=== PATIENT | female | born 1960 | race Caucasian/White ===

== ENCOUNTER 2017-08-01 11:06 | Emergency (ER) | payer OTHER, BC ==
[2017-08-01 11:14] VITALS: PULSE 81; RESP 18; TEMP 97
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
--- NOTE | 2017-08-01 12:16 | XR ---
Right knee HISTORY: Trauma and pain 3 views of the right knee There is a comminuted fracture at the medial aspect of the proximal tibia with inferior displacement of the fracture fragment, intra-articular involvement is noted. There is a joint effusion. IMPRESSION: Proximal comminuted intra-articular tibial fracture
--- NOTE | 2017-08-01 12:17 | XR ---
Right ankle HISTORY: Right ankle pain, trauma 3 views of the right ankle Bone mineralization, joint spaces and alignment are maintained. No significant soft tissue swelling. Plantar calcaneal spur is noted incidentally. IMPRESSION: No acute fracture or dislocation evident, follow-up as indicated.
[2017-08-01] MEDS ORDERED: HYDROcodone/APAP 5-325MG 1 EACH TAB PO STA (13:28)
[2017-08-01 14:05] VITALS: BP 167/87
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
== END 2017-08-01 14:30 | disposition home or self-care (01) ==
LOC: EC 11:06
DX: S82.091A Other fracture of right patella, initial encounter for closed fracture (principal); R40.2412 Glasgow coma scale score 13-15, at arrival to emergency department; V89.2XXA Person injured in unspecified motor-vehicle accident, traffic, initial encounter; Y92.410 Unspecified street and highway as the place of occurrence of the external cause
CPT/HCPCS: 99285

== ENCOUNTER → 2017-08-03 | Outpatient (CLI) | payer OTHER | LOC: LABWHC1 14:46 | PROVIDERS: ATTEND Physician Assistant | DX: Z01.818 Encounter for other preprocedural examination (principal) | CPT/HCPCS: 36415; 93005 ==

== ENCOUNTER 2017-08-11 06:52 | Inpatient (IN) | payer OTHER, BC ==
[2017-08-08 13:28] VITALS: BMI 35.7
[~2017-08-11 06:52] MED LIST: ACETAMINOPHEN TAB 500 MG TAB PO ONE; DEXAMETHASONE SOD PHOSPHATE 10 MG/ML 1 ML VIAL IV ONE; MIDAZOLAM 2 MG/2 ML VIAL IV PRN; ONDANSETRON 4 MG/2 ML VIAL IVP ONE; SCOPOLAMINE 1.5MG/72HR PATCH TRANSDERM ONE; TRANEXAMIC ACID 1,000 MG in SODIUM CHLORIDE 0.9% 50 ML IVPB ONE; ceFAZolin IN SWFI 2 GM/20 ML SYRINGE IVP ONE; fentaNYL (PF) 50 MCG/ML 2 ML AMP IV PRN
[2017-08-11 07:30] VITALS: RESP 16
[2017-08-11] MEDS: LACTATED RINGERS 1,000 ML IV SCH ×2 (07:46→14:15)
[2017-08-11] MEDS ORDERED: LIDOCAINE 1% 20 ML VIAL (10MG/ML) FOR IV START INTRADERMA ONE (07:46)
[2017-08-11 07:56] LABS: Anisocytosis Slight; Basophils # (A) 0.1 k/uL (0-0.2); Basophils % (A) 1 %; Eosinophils # (A) 0.3 k/uL (0-0.7); Eosinophils % (A) 3 %; HCT 30.5 % (34.0-46.0); HGB 8.7 gm/dL (11.4-16.0); Hypochromasia Marked; Lymphocytes # (A) 1.7 k/uL (1.0-4.8); Lymphocytes % (A) 20 %; MCH 18.4 pg (25.0-35.0); MCHC 28.7 g/dL (31.0-37.0); MCV 64.3 fL (80.0-100.0); Mean Platelet Volume 6.1; Microcytosis Marked; Monocytes # (A) 0.4 k/uL (0-1.0); Monocytes % (A) 4 %; Neutrophils # (A) 5.9 k/uL (1.3-7.7); Neutrophils % (A) 70 %; Platelet Count 528 k/uL (150-450); Poikilocytosis Slight; RBC 4.75 m/uL (3.80-5.40); WBC 8.4 k/uL (3.8-10.6)
[2017-08-11] MEDS ORDERED: TRANEXAMIC ACID 1,000 MG/10 ML VIAL ONE (09:31)
[2017-08-11] MEDS ORDERED: MIDAZOLAM 2 MG/2 ML VIAL ONE (09:31)
[2017-08-11] MEDS ORDERED: SODIUM CHLORIDE 0.9% 100 ML BAG ONE (09:31)
[2017-08-11] MEDS ORDERED: fentaNYL (PF) 50 MCG/ML 2 ML AMP ONE (09:31)
[2017-08-11] MEDS ORDERED: PROPOFOL 10 MG/ML 20 ML VIAL IV ONE (09:31)
[2017-08-11] MEDS: ROPIVACAINE 246.25 MG, EPINEPHrine 0.5 MG, KETOROLAC 30 MG, cloNIDine HCL/PF 80 MCG, WA... MISCELLANE ONE ×10 (10:35→11:37)
[2017-08-11] MEDS ORDERED: ceFAZolin 1,000 MG in SODIUM CHLORIDE 0.9% 1,000 ML IRRIGATION ONE (10:36)
[2017-08-11] MEDS ORDERED: ONDANSETRON 4 MG/2 ML VIAL IVP PRN (12:18)
[2017-08-11] MEDS ORDERED: hydrOXYzine PAMOATE 25 MG CAP PO PRN (12:18)
[2017-08-11] MEDS ORDERED: NALOXONE 0.4 MG/ML 1 ML VIAL IV PRN (12:18)
[2017-08-11] MEDS ORDERED: NA PHOS,M-B/NA PHOS,DI-BA 133 ML ENEMA RECTAL PRN (12:18)
[2017-08-11] MEDS ORDERED: BISACODYL 10 MG SUPP RECTAL PRN (12:18)
[2017-08-11] MEDS ORDERED: MAGNESIUM HYDROXIDE 2,400 MG/10 ML CUP PO PRN (12:18)
[2017-08-11] MEDS ORDERED: HYDROmorphone 1 MG/ML 1 ML SYRINGE IVP PRN (12:18)
[2017-08-11] MEDS ORDERED: HYDROmorphone 0.5 MG/0.5 ML SYRINGE IVP PRN ×4 (12:18→15:36)
[2017-08-11] MEDS ORDERED: ACETAMINOPHEN TAB 325 MG TAB PO PRN (12:18)
[2017-08-11] MEDS ORDERED: HYDROcodone/APAP 5-325MG 1 EACH TAB PO PRN (12:18)
--- NOTE | 2017-08-11 12:36 | FL ---
Fluoroscopy HISTORY: Open reduction internal fixation 18 seconds fluoroscopy time supplied to the referring clinician. 2 intraoperative C-arm images docum ent the procedure. See dictated report from orthopedic surgery.
--- NOTE | 2017-08-11 12:37 | XR ---
Limited leg HISTORY: Fracture 2 intraoperative images document the procedure
--- NOTE | 2017-08-11 12:59 | XR ---
EXAMINATION TYPE: XR knee limited RT DATE OF EXAM: 08/11/2017 COMPARISON: NONE HISTORY: Postop evaluation TECHNIQUE: 2 view right knee FINDINGS: Plate and screws in place through a tibial plateau fracture along the medial aspect of the proximal tibia. No new fractures are evident. Postsurgical changes are within soft tissues. IMPRESSION: 1. No additional fractures post open reduction and fixation tibial plateau fracture repair.
[2017-08-11] MEDS: HYDROcodone/APAP 5-325MG 1 EACH TAB PO PRN ×2 (14:11→20:28)
[2017-08-11] MEDS: ceFAZolin IN SWFI 2 GM/20 ML SYRINGE IVP SCH (17:30)
[2017-08-11] MEDS ORDERED: WARFARIN 5 MG TAB PO ONE (18:00)
[2017-08-11] MEDS ORDERED: SENNOSIDES-DOCUSATE SODIUM 1 EACH TAB PO SCH (21:00)
[2017-08-11] MEDS ORDERED: TEMAZEPAM 15 MG CAP PO PRN (22:00)
[2017-08-12] MEDS: ceFAZolin IN SWFI 2 GM/20 ML SYRINGE IVP SCH (00:34)
[2017-08-12] MEDS: HYDROcodone/APAP 5-325MG 1 EACH TAB PO PRN ×2 (02:01→08:29)
[2017-08-12] MEDS: LACTATED RINGERS 1,000 ML IV SCH ×3 (03:27→08:29)
[2017-08-12 07:18] LABS: Anisocytosis Slight; Basophils % (A) 0 %; Eosinophils # (A) 0.1 k/uL (0-0.7); Eosinophils % (A) 0 %; HCT 27.9 % (34.0-46.0); HGB 7.8 gm/dL (11.4-16.0); Hypochromasia Marked; Lymphocytes # (A) 2.3 k/uL (1.0-4.8); Lymphocytes % (A) 19 %; MCH 18.2 pg (25.0-35.0); MCV 65.1 fL (80.0-100.0); Microcytosis Marked; Monocytes # (A) 0.6 k/uL (0-1.0); Monocytes % (A) 5 %; Neutrophils # (A) 9.1 k/uL (1.3-7.7); Neutrophils % (A) 75 %; Platelet Count 512 k/uL (150-450); RBC 4.28 m/uL (3.80-5.40); RDW 17.9 % (11.5-15.5); WBC 12.2 k/uL (3.8-10.6)
[2017-08-12 07:30] LABS: INR 1.1 (<1.2); Prothrombin Time 10.4 sec (9.0-12.0)
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
[2017-08-12 10:55] VITALS: BP 165/81; PULSE 83; TEMP 98.3
[2017-08-12] MEDS ORDERED: WARFARIN 5 MG TAB PO ONE (18:00)
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
== END 2017-08-12 13:40 | disposition home or self-care (01) | DRG 494 ==
LOC: OBSVTOIN 06:52 → INTOOBSV 06:52 → 2ORMAIN 06:52 → 3SUR 12:12
PROVIDERS: ADMIT Orthopaedic Surgery; ATTEND Orthopaedic Surgery
PROC: 0QSG04Z Reposition Right Tibia with Internal Fixation Device, Open Approach (ICD-10-PCS; principal; 2017-08-11 09:05)
DX: S82.141A Displaced bicondylar fracture of right tibia, initial encounter for closed fracture (principal); M85.80 Other specified disorders of bone density and structure, unspecified site; Z79.899 Other long term (current) drug therapy; Z98.51 Tubal ligation status; V89.2XXA Person injured in unspecified motor-vehicle accident, traffic, initial encounter; Y92.414 Local residential or business street as the place of occurrence of the external cause
CPT/HCPCS: 82306; 85025; 85610; 86850; 86900; 86901

== ENCOUNTER → 2017-08-18 | Outpatient (CLI) | payer OTHER ==
[2017-08-18 17:07] LABS: Anisocytosis Slight; Basophils # (A) 0.1 k/uL (0-0.2); Basophils % (A) 1 %; Eosinophils # (A) 0.1 k/uL (0-0.7); Eosinophils % (A) 1 %; HCT 30.8 % (34.0-46.0); Hypochromasia Marked; Lymphocytes # (A) 1.7 k/uL (1.0-4.8); Lymphocytes % (A) 16 %; MCH 18.5 pg (25.0-35.0); MCHC 29.1 g/dL (31.0-37.0); MCV 63.5 fL (80.0-100.0); Mean Platelet Volume 6.3; Microcytosis Marked; Monocytes # (A) 0.6 k/uL (0-1.0); Monocytes % (A) 6 %; Neutrophils % (A) 75 %; Platelet Count 750 k/uL (150-450); RBC 4.85 m/uL (3.80-5.40); RDW 17.7 % (11.5-15.5); WBC 10.7 k/uL (3.8-10.6)
[2017-08-18 17:12] LABS: INR 1.5 (<1.2); Prothrombin Time 13.6 sec (9.0-12.0)
== END | disposition home or self-care (01) ==
LOC: LABWHC1 16:21
PROVIDERS: ATTEND Physician Assistant
DX: D64.9 Anemia, unspecified (principal); Z79.01 Long term (current) use of anticoagulants
CPT/HCPCS: 36415; 85025; 85610

== ENCOUNTER → 2017-08-25 | Outpatient (CLI) | payer OTHER ==
[2017-08-25 12:46] LABS: INR 1.7 (<1.2); Prothrombin Time 15.4 sec (9.0-12.0)
== END | disposition home or self-care (01) ==
LOC: LABWHC1 11:41
PROVIDERS: ATTEND Physician Assistant
DX: Z51.81 Encounter for therapeutic drug level monitoring (principal); Z79.01 Long term (current) use of anticoagulants
CPT/HCPCS: 36415; 85610